=== PATIENT | female | born 1955 | race Caucasian/White ===

== ENCOUNTER 2019-05-18 04:43 | Inpatient (IN) ==
[~2019-05-18 04:43] MED LIST: HEPARIN/NACL 0.9% 2 UNITS/ML 1,000 ML IV ONE; LIDOCAINE 1% 20 ML VIAL ONE
[2019-05-18] MEDS ORDERED: VERAPAMIL 5 MG/2 ML VIAL ONE (04:53)
[2019-05-18] MEDS ORDERED: NITROGLYCERIN DRIP 50 MG/250 ML BOTTLE IV ONE (04:53)
[2019-05-18] MEDS ORDERED: MIDAZOLAM 2 MG/2 ML VIAL ONE (05:01)
[2019-05-18] MEDS ORDERED: HYDROmorphone 2 MG/1 ML VIAL ONE ×2 (05:01→05:49)
[2019-05-18] MEDS ORDERED: TIROFIBAN 5,000 MCG/100 ML PREMIX IV ONE (05:28)
[2019-05-18] MEDS ORDERED: ASPIRIN 325 MG TABLET ONE (05:30)
[2019-05-18] MEDS ORDERED: NITROGLYCERIN SL 0.4 MG TABLET SL ONE ×2 (05:46→14:06)
[2019-05-18] MEDS ORDERED: TICAGRELOR 90 MG TABLET ONE (06:20)
[2019-05-18] MEDS ORDERED: ACETAMINOPHEN/CODEINE 300-30 MG TABLET PO PRN (06:23)
[2019-05-18] MEDS ORDERED: ACETAMINOPHEN 325 MG TABLET PO PRN (06:23)
[2019-05-18 08:11] LABS: Calcium 7.9 MG/DL (8.5-10.1); Osmolality,Calculated 282.3 MOS/KG (273-304)
[2019-05-18 08:16] LABS: CKMB % 6.7 %
[2019-05-18 08:19] LABS: Troponin I 1.24 NG/ML (0.00-0.045)
[2019-05-18 09:44] LABS: CKMB % 8.4 %
[2019-05-18 09:49] LABS: Troponin I 2.14 NG/ML (0.00-0.045)
[2019-05-18] MEDS ORDERED: ONDANSETRON 4 MG/2 ML VIAL IV PRN (11:21)
[2019-05-18] MEDS ORDERED: guaiFENesin/DM ER 600-30 MG TABLET PO PRN (11:21)
[2019-05-18] MEDS ORDERED: diphenhydrAMINE CAP 25 MG CAPSULE PO PRN (11:21)
[2019-05-18] MEDS ORDERED: BISACODYL 5 MG TABLET PO PRN (11:21)
[2019-05-18] MEDS ORDERED: DOCUSATE SODIUM 100 MG CAPSULE PO PRN (11:21)
[2019-05-18] MEDS ORDERED: MAGNESIUM SULF RIDER 4 GM in PREMIX 1 EACH IV PRN (11:21)
[2019-05-18] MEDS ORDERED: MAGNESIUM SULF RIDER 2 GM in PREMIX 1 EACH IV PRN (11:21)
[2019-05-18] MEDS: LISINOPRIL/HCTZ 10-12.5 MG TABLET PO SCH (11:44)
[2019-05-18] MEDS: MONTELUKAST 10 MG TABLET PO SCH (11:48)
[2019-05-18] MEDS: DULoxetine 30 MG CAPSULE PO SCH (11:48)
[2019-05-18] MEDS: PANTOPRAZOLE 40 MG TABLET PO SCH (11:48)
[2019-05-18] MEDS: ENOXAPARIN 40 MG/0.4 ML SYRINGE SUBCUT SCH (11:49)
[2019-05-18 13:04] LABS: Troponin I 5.48 NG/ML (0.00-0.045)
[2019-05-18] MEDS: HYDROmorphone 2 MG/1 ML VIAL IV PRN ×2 (14:06→20:35)
[2019-05-18] MEDS ORDERED: KETOROLAC 30 MG/1 ML VIAL IV ONE (14:22)
[2019-05-18] MEDS ORDERED: ALUM/MAG/SIMETH/LIDO VISC 1:1 30 ML BOTTLE PO ONE (16:21)
[2019-05-18] MEDS ORDERED: NABUMETONE 750 MG TABLET PO SCH (21:00)
[2019-05-18] MEDS: traZODone 50 MG TABLET PO SCH (22:02)
[2019-05-18] MEDS: buPROPion 100 MG TABLET PO SCH (22:02)
[2019-05-18] MEDS: SIMVASTATIN 10 MG TABLET PO SCH (22:02)
[2019-05-18] MEDS: GABAPENTIN 400 MG CAPSULE PO SCH (22:02)
[2019-05-18] MEDS: TICAGRELOR 90 MG TABLET PO SCH (22:03)
[2019-05-18] MEDS: CARVEDILOL 3.125 MG TABLET PO SCH (22:07)
[2019-05-19 05:11] LABS: Basophils # 0.1 10*3/uL (0.0-0.2); Basophils % 0.8 % (0.0-0.8); Eosinophils # 0.5 10*3/uL (0.0-0.87); Eosinophils % 5.3 % (0.00-10.9); Hematocrit 32.8 VOL% (35.7-47.0); Immature Granulocytes % 0.5 %; Immature Granulocytes Absolute 0.05 #; Lymphocytes % 20.1 % (21.3-54.2); Mean Corpuscular HGB Conc 33.5 GM/DL (32-36); Mean Corpuscular Volume 90.9 FL (87-102); Mean Platelet Volume 9.5 FL (9.6-12.0); Monocytes % 10.1 % (1.7-12.7); Neutrophils % 63.2 % (38.7-73.9); Platelet Count 236 T/CUMM (130-400); Red Blood Count 3.61 MC/CUMM (3.8-5.5); Red Cell Distribution Width 12.7 % (9.3-17.3); White Blood Count 9.7 T/CUMM (4-12)
[2019-05-19 05:33] LABS: Alanine Aminotransferase 41 U/L (13-56); Albumin 2.8 G/DL (3.4-5.0); Alkaline Phosphatase 101 U/L (45-117); Aspartate Amino Transferase 144 U/L (0-37); Bilirubin,Direct < 0.100 MG/DL (0.0-0.20); Bilirubin,Indirect 0.6 MG/DL (0.0-1.0); Total Protein 5.9 G/DL (6.4-8.3)
[2019-05-19 05:35] LABS: Calcium 8.8 MG/DL (8.5-10.1); Osmolality,Calculated 279.4 MOS/KG (273-304); Risk Ratio 5.4; VLDL CHOLESTEROL 37.4 MG/DL
[2019-05-19] MEDS ORDERED: LEVOTHYROXINE 112 MCG TABLET PO SCH (07:00)
[2019-05-19] MEDS: DULoxetine 30 MG CAPSULE PO SCH (08:03)
[2019-05-19] MEDS: LISINOPRIL/HCTZ 10-12.5 MG TABLET PO SCH (08:03)
[2019-05-19] MEDS: ASPIRIN EC 81 MG TABLET PO SCH (08:03)
[2019-05-19] MEDS: MONTELUKAST 10 MG TABLET PO SCH (08:03)
[2019-05-19] MEDS: CARVEDILOL 3.125 MG TABLET PO SCH ×2 (08:04→21:36)
[2019-05-19] MEDS: GABAPENTIN 400 MG CAPSULE PO SCH ×2 (08:04→21:35)
[2019-05-19] MEDS: TICAGRELOR 90 MG TABLET PO SCH ×2 (08:04→21:35)
[2019-05-19] MEDS: POTASSIUM CHLORIDE 20 MEQ TABLET PO PRN (08:04)
[2019-05-19] MEDS: PANTOPRAZOLE 40 MG TABLET PO SCH (08:04)
[2019-05-19] MEDS: buPROPion 100 MG TABLET PO SCH ×2 (08:04→21:35)
[2019-05-19] MEDS ORDERED: PNEUMOCOCCAL VACCINE (13 VALENT) 0.5 ML SYRINGE IM ONE (09:00)
[2019-05-19] MEDS: ENOXAPARIN 40 MG/0.4 ML SYRINGE SUBCUT SCH (11:19)
[2019-05-19] MEDS: traZODone 50 MG TABLET PO SCH (21:35)
[2019-05-19] MEDS: SIMVASTATIN 10 MG TABLET PO SCH (21:36)
[2019-05-20 05:07] LABS: Basophils # 0.1 10*3/uL (0.0-0.2); Basophils % 0.7 % (0.0-0.8); Eosinophils # 0.4 10*3/uL (0.0-0.87); Eosinophils % 3.6 % (0.00-10.9); Hematocrit 30.3 VOL% (35.7-47.0); Hemoglobin 10.1 GM/DL (12.0-16.0); Immature Granulocytes % 0.6 %; Immature Granulocytes Absolute 0.06 #; Lymphocytes # 2.3 10*3/uL (1.4-4.0); Lymphocytes % 21.8 % (21.3-54.2); Mean Corpuscular HGB Conc 33.3 GM/DL (32-36); Mean Corpuscular Volume 88.9 FL (87-102); Mean Platelet Volume 9.6 FL (9.6-12.0); Monocytes % 12.6 % (1.7-12.7); Neutrophils % 60.7 % (38.7-73.9); Platelet Count 206 T/CUMM (130-400); Red Blood Count 3.41 MC/CUMM (3.8-5.5); Red Cell Distribution Width 12.7 % (9.3-17.3); White Blood Count 10.4 T/CUMM (4-12)
[2019-05-20 05:23] LABS: Calcium 8.7 MG/DL (8.5-10.1); Osmolality,Calculated 277.5 MOS/KG (273-304)
[2019-05-20] MEDS: LEVOTHYROXINE 100 MCG TABLET PO SCH (06:44)
[2019-05-20] MEDS: POTASSIUM CHLORIDE 20 MEQ TABLET PO PRN ×2 (07:16→09:13)
[2019-05-20] MEDS: ASPIRIN EC 81 MG TABLET PO SCH (08:19)
[2019-05-20] MEDS: buPROPion 100 MG TABLET PO SCH ×2 (08:19→23:15)
[2019-05-20] MEDS: PANTOPRAZOLE 40 MG TABLET PO SCH (08:19)
[2019-05-20] MEDS: DULoxetine 30 MG CAPSULE PO SCH (08:19)
[2019-05-20] MEDS: LISINOPRIL/HCTZ 10-12.5 MG TABLET PO SCH (08:19)
[2019-05-20] MEDS: MONTELUKAST 10 MG TABLET PO SCH (08:19)
[2019-05-20] MEDS: GABAPENTIN 400 MG CAPSULE PO SCH ×2 (08:19→23:16)
[2019-05-20] MEDS: CARVEDILOL 3.125 MG TABLET PO SCH (08:19)
[2019-05-20] MEDS: TICAGRELOR 90 MG TABLET PO SCH ×2 (08:19→23:15)
[2019-05-20] MEDS: ENOXAPARIN 40 MG/0.4 ML SYRINGE SUBCUT SCH (11:30)
[2019-05-20] MEDS ORDERED: SODIUM CHLORIDE 0.9% 500 ML IV ONE (13:37)
[2019-05-20 14:53] LABS: Basophils # 0.1 10*3/uL (0.0-0.2); Basophils % 0.6 % (0.0-0.8); Eosinophils # 0.5 10*3/uL (0.0-0.87); Hematocrit 35.7 VOL% (35.7-47.0); Hemoglobin 11.6 GM/DL (12.0-16.0); Immature Granulocytes % 0.7 %; Immature Granulocytes Absolute 0.08 #; Lymphocytes # 1.9 10*3/uL (1.4-4.0); Lymphocytes % 15.8 % (21.3-54.2); Mean Corpuscular HGB Conc 32.5 GM/DL (32-36); Mean Corpuscular Volume 91.3 FL (87-102); Mean Platelet Volume 9.7 FL (9.6-12.0); Monocytes % 9.7 % (1.7-12.7); Neutrophils % 69.2 % (38.7-73.9); Platelet Count 240 T/CUMM (130-400); Red Blood Count 3.91 MC/CUMM (3.8-5.5); White Blood Count 12.1 T/CUMM (4-12)
[2019-05-20] MEDS: ASCORBIC ACID 500 MG TABLET PO SCH (23:15)
[2019-05-20] MEDS: traZODone 50 MG TABLET PO SCH (23:15)
[2019-05-20] MEDS: MAGNESIUM CHLORIDE 64 MG TABLET PO SCH (23:15)
[2019-05-20] MEDS: SIMVASTATIN 10 MG TABLET PO SCH (23:16)
[2019-05-20] MEDS: SODIUM CHLORIDE 0.9% 1,000 ML IV SCH (23:17)
[2019-05-21] MEDS: CARVEDILOL 3.125 MG TABLET PO SCH ×2 (01:26→09:38)
[2019-05-21 04:46] LABS: Basophils # 0.1 10*3/uL (0.0-0.2); Basophils % 0.5 % (0.0-0.8); Eosinophils # 0.6 10*3/uL (0.0-0.87); Eosinophils % 5.8 % (0.00-10.9); Hematocrit 28.8 VOL% (35.7-47.0); Hemoglobin 9.6 GM/DL (12.0-16.0); Immature Granulocytes % 0.6 %; Immature Granulocytes Absolute 0.06 #; Lymphocytes # 2.1 10*3/uL (1.4-4.0); Lymphocytes % 21.6 % (21.3-54.2); Mean Corpuscular HGB Conc 33.3 GM/DL (32-36); Mean Corpuscular Volume 90.3 FL (87-102); Monocytes % 11.1 % (1.7-12.7); Neutrophils % 60.4 % (38.7-73.9); Platelet Count 194 T/CUMM (130-400); Red Blood Count 3.19 MC/CUMM (3.8-5.5); White Blood Count 9.9 T/CUMM (4-12)
[2019-05-21 05:14] LABS: Calcium 8.6 MG/DL (8.5-10.1); Osmolality,Calculated 277.7 MOS/KG (273-304)
[2019-05-21] MEDS: GABAPENTIN 400 MG CAPSULE PO SCH (09:30)
[2019-05-21] MEDS: DULoxetine 30 MG CAPSULE PO SCH (09:30)
[2019-05-21] MEDS: MAGNESIUM CHLORIDE 64 MG TABLET PO SCH (09:30)
[2019-05-21] MEDS: TICAGRELOR 90 MG TABLET PO SCH (09:30)
[2019-05-21] MEDS: PANTOPRAZOLE 40 MG TABLET PO SCH (09:30)
[2019-05-21] MEDS: ASCORBIC ACID 500 MG TABLET PO SCH (09:30)
[2019-05-21] MEDS: MONTELUKAST 10 MG TABLET PO SCH (09:30)
[2019-05-21] MEDS: buPROPion 100 MG TABLET PO SCH (09:30)
[2019-05-21] MEDS: ASPIRIN EC 81 MG TABLET PO SCH (09:30)
[2019-05-21] MEDS: SODIUM CHLORIDE 0.9% 1,000 ML IV SCH (09:30)
[2019-05-21] MEDS: LEVOTHYROXINE 100 MCG TABLET PO SCH (09:37)
[2019-05-21] MEDS: ENOXAPARIN 40 MG/0.4 ML SYRINGE SUBCUT SCH (10:30)
[2019-05-21 12:04] VITALS: BP 112/72
== END 2019-05-21 15:14 | disposition home or self-care (01) | DRG 246 ==
LOC: N.CL 04:43 → N.ICU 05:30 → N.TELES 05-20 15:06
PROVIDERS: ADMIT Internal Medicine Cardiovascular Disease; ATTEND Internal Medicine Cardiovascular Disease
PROC: CLCCHCL (ICD-10-PCS; 2019-05-18 05:15)